=== PATIENT | female | born 1940 | race Caucasian/White ===

== ENCOUNTER 2017-09-09 06:29 | Day surgery (SDC) | payer MEDICARE ==
[2017-09-09] MEDS ORDERED: Sodium Chloride 0.9% 10 ML Syringe FLUSH PRN (06:30)
[2017-09-09] MEDS ORDERED: Acetaminophen 500 MG Tab PO ONE (07:00)
[2017-09-09] MEDS ORDERED: Gabapentin 300 MG Cap PO ONE (07:00)
[2017-09-09] MEDS ORDERED: Scopolamine 1.5 MG Transdermal Patch TRDERM ONE (07:00)
[2017-09-09] MEDS: Lactated Ringers 1,000 ML IV SCH ×2 (07:40→10:27)
[2017-09-09] MEDS ORDERED: Clindamycin in 0.9 % Sod Chlor 900 MG/50 ML BAG IV ONE (07:45)
--- NOTE | 2017-09-09 07:50 | PCM.DCSUM1 ---
Discharge Summary - Hospital Course Brief History: Patient was seen in clinic with left knee primary osteoarthritis. Had failed non operative treatment. - Discharge Data Discharge Date: 09/10/17 Discharge Disposition: Home, Self-Care 01 Condition: Good - Patient Summary/Data Operative Procedure(s) Performed: Left total knee arthroplasty Complications: none - Patient Instructions Diet: Usual Diet as Tolerated Activity: Apply Ice, Full Weight Bearing, No Strenuous Activities Driving: Do Not Drive Showering/Bathing: May Shower Wound/Incision Care: Keep Operative Site/Wound Site Clean and Dry, Change Dressing Daily Notify Provider of: Fever, Increased Pain, Swelling and Redness, Drainage, Nausea and/or Vomiting - Discharge Plan Home Medications: Home Meds ALPRAZolam [Xanax] 0.25 mg PO TID PRN 09/08/17 [History] Baclofen 10 mg PO TID 09/08/17 [History] DULoxetine [Cymbalta] 60 mg PO DAILY 09/08/17 [History] Furosemide [Lasix] 20 mg PO DAILY 09/08/17 [History] Omeprazole Magnesium [Prilosec Otc] 40 mg PO DAILY 09/08/17 [History] PNV95/Ferrous Fumarate/FA [ Tablet] 1 tab PO DAILY 09/09/17 [History] Temazepam [Restoril] 60 mg PO BEDTIME 09/09/17 [History] Vitamin B Complex [Super B-50 Complex] 1 cap PO DAILY 09/09/17 [History] Patient Handouts: Incentive Spirometer, Total Knee Replacement, Care After, [id number], Fall Prevention in Hospitals, Adult - General Info Functional Status: Reports: Pain Controlled, Tolerating Diet, Ambulating, Urinating - Review of Systems General: Reports: No Symptoms HEENT: Reports: No Symptoms Pulmonary: Reports: No Symptoms Cardiovascular: Reports: No Symptoms Gastrointestinal: Reports: No Symptoms Genitourinary: Reports: No Symptoms Musculoskeletal: Reports: Joint Pain Skin: Reports: No Symptoms Neurological: Reports: No Symptoms Psychiatric: Reports: No Symptoms - Patient Data Vitals - Most Recent: Last Vital Signs Temp 98.0 F 09/09/17 07:00 Pulse 81 09/09/17 07:00 Resp 18 09/09/17 07:00 BP 138/75 09/09/17 07:00 Pulse Ox 99 09/09/17 07:00 Weight - Most Recent: 147 lb Med Orders - Current: Current Medications Lactated Ringer's (Ringers, Lactated) 1,000 mls @ 125 mls/hr IV ASDIRECTED [facility] Last Admin: 09/09/17 07:40 Dose: 125 mls/hr Clindamycin in 0.9 % Sod Chlor (Cleocin In Ns) 900 mg in 50 mls @ 100 mls/hr IV ONETIME ONE Stop: 09/09/17 08:14 Sodium Chloride (Saline Flush) 10 ml FLUSH ASDIRECTED PRN PRN Reason: Keep Vein Open Discontinued Medications Acetaminophen (Tylenol Extra Strength) 1,000 mg PO ONETIME ONE Stop: 09/09/17 07:01 Gabapentin (Neurontin) 300 mg PO ONETIME ONE Stop: 09/09/17 07:01 Last Admin: 09/09/17 07:42 Dose: 300 mg Scopolamine (Transderm-Scop) 1.5 mg TRDERM PREPRO ONE Stop: 09/09/17 07:01 - Exam General: Reports: Alert, Oriented HEENT: Reports: Pupils Equal, Mucous Membr. Moist/[place] Neck: Reports: Supple, Trachea Midline Lungs: Reports: Clear to Auscultation, Normal Respiratory Effort Extremities: Joint Swelling Skin: Reports: Warm, Dry, Intact Wound/Incisions: Reports: Healing Well, Dressing Dry and Intact, No Drainage Neurological: Reports: No New Focal Deficit
[2017-09-09] MEDS ORDERED: TRANEXAMIC ACID IV ONE (08:00)
[2017-09-09] MEDS ORDERED: Midazolam 1 MG/ML 2 ML SDV IV ONE (08:00)
[2017-09-09] MEDS ORDERED: Propofol 200 MG/20 ML SDV IV ONE (08:00)
[2017-09-09] MEDS ORDERED: SODIUM CHLORIDE 0.9% IV ONE (08:00)
[2017-09-09] MEDS ORDERED: Lactated Ringers 1,000 ML IV ONE (08:00)
[2017-09-09] MEDS ORDERED: Ondansetron 4 MG/2 ML SDV IVPUSH ONE (08:00)
[2017-09-09] MEDS ORDERED: Ketamine 500 mg/10 ML MDV IV ONE (08:00)
[2017-09-09] MEDS ORDERED: Ropivacaine 49.25 ML, Ketorolac 30 MG, EPINEPHrine 0.5 MG, cloNIDine 80 MCG, Sodium Chl... INJECT SCH ×5 (08:00)
[2017-09-09] MEDS ORDERED: fentaNYL 100 MCG/2 ML SDV IV ONE (08:00)
[2017-09-09] MEDS ORDERED: TOBRAMYCIN SULFATE ONE (09:20)
[2017-09-09] MEDS ORDERED: Vancomycin 1,000 MG SDV ONE (09:35)
[2017-09-09] MEDS ORDERED: Ondansetron 4 MG/2 ML SDV IVPUSH PRN ×2 (09:50→11:07)
[2017-09-09] MEDS ORDERED: Morphine 2 MG/ML Syringe IVPUSH PRN (09:50)
[2017-09-09] MEDS ORDERED: Naloxone 0.4 MG/ML SDV IVPUSH PRN ×2 (09:50→11:07)
[2017-09-09] MEDS ORDERED: Sennosides 8.6 MG Tab PO PRN (09:50)
[2017-09-09] MEDS ORDERED: diphenhydrAMINE 50 MG/ML SDV IVPUSH PRN (09:50)
[2017-09-09] MEDS ORDERED: Magnesium Hydroxide 400 MG/5 ML Susp 30 ML Cup PO PRN (09:50)
[2017-09-09] MEDS ORDERED: Zolpidem 5 MG Tab PO PRN (09:50)
[2017-09-09] MEDS ORDERED: Ketorolac 30 MG/ML SDV IVPUSH PRN (09:50)
[2017-09-09] MEDS ORDERED: traMADol 50 MG Tab PO PRN (09:50)
[2017-09-09] MEDS ORDERED: Docusate Sodium 100 MG Cap PO PRN (09:50)
[2017-09-09] MEDS ORDERED: Bisacodyl 5 MG Tab PO PRN (09:50)
[2017-09-09] MEDS ORDERED: Baclofen 10 MG Tab PO PRN (09:55)
[2017-09-09] MEDS ORDERED: Cyclobenzaprine 10 MG Tab PO PRN (09:55)
[2017-09-09] MEDS ORDERED: ALPRAZolam 0.25 MG Tab PO PRN (09:55)
[2017-09-09] MEDS ORDERED: Nalbuphine 10 MG/1 ML Vial IVPUSH PRN (11:07)
[2017-09-09] MEDS ORDERED: diphenhydrAMINE 50 MG/ML SDV IV PRN (11:07)
--- NOTE | 2017-09-09 11:39 | CR ---
INDICATION: Postop. LEFT KNEE: Frontal and lateral postop views of the left knee were obtained 03/2018 and compared with 08/19/2017 preop study, now revealing a TKA in good position and alignment with postop changes, including air in the joint and skin luis carlos. Position and alignment appear to be satisfactory without evidence of a complicating process. IMPRESSION: Satisfactory appearance postop total knee arthroplasty on the left. VANNESSA
[2017-09-09] MEDS: Baclofen 10 MG Tab PO SCH ×2 (14:52→21:10)
[2017-09-09] MEDS: Acetaminophen/HYDROcodone 325-10 MG Tab PO PRN ×2 (15:53→20:07)
[2017-09-10] MEDS: Acetaminophen/HYDROcodone 325-10 MG Tab PO PRN ×3 (00:16→08:05)
--- NOTE | 2017-09-10 08:20 | PCM.PN ---
- General Info Date of Service: 09/10/17 Admission Dx/Problem (Free Text): Patient states she's having lots of pain in the left knee. Feels a little bit numb today. He denies chest pain, shortness of breath, wheezing or chills. - Patient Data Vitals - Most Recent: Last Vital Signs Temp 97.8 F 09/10/17 00:00 Pulse 80 09/10/17 07:45 Resp 20 09/10/17 04:30 BP 125/64 09/10/17 04:30 Pulse Ox 95 09/10/17 07:45 Weight - Most Recent: 147 lb I&O - Last 24 Hours: Intake & Output 09/09/17 09/10/17 09/10/17 22:59 06:59 14:59 Output Total 335 450 Balance -335 -450 Lab Results Last 24 Hours: Laboratory Results - last 24 hr 09/10/17 09/10/17 Range/Units 06:10 06:10 WBC 7.9 (4.5-12.0) X10-3/uL RBC 3.30 (3.23-5.20) x10(6)uL Hgb 10.4 L (11.5-15.5) g/dL Hct 31.4 (30.0-51.3) % MCV 95.2 (80-96) fL MCH 31.6 (27.7-33.6) pg MCHC 33.2 (32.2-35.4) g/dL RDW 13.4 (11.5-15.5) % Plt Count 188 (125-369) X10(3)uL MPV 7.4 (7.4-10.4) fL Neut % (Auto) 76.8 (46-82) % Lymph % (Auto) 10.5 L (13-37) % [place] % (Auto) 11.3 (4-12) % Eos % (Auto) 1 (1.0-5.0) % Baso % (Auto) 0 (0-2) % Neut # (Auto) 6.1 (1.6-8.3) # Lymph # (Auto) 0.8 (0.6-5.0) # [place] # (Auto) 0.9 (0.0-1.3) # Eos # (Auto) 0.1 (0.0-0.8) # Baso # (Auto) 0.0 (0.0-0.2) # Sodium 136 (135-145) mmol/L Potassium 4.1 (3.5-5.3) mmol/L Chloride 103 (100-110) mmol/L Carbon Dioxide 29 (21-32) mmol/L BUN 11 (7-18) mg/dL Creatinine 0.7 (0.55-1.02) mg/dL Est Cr Clr Drug Dosing 50.79 mL/min Estimated GFR (MDRD) > 60 (>60) BUN/Creatinine Ratio 15.7 (9-20) Glucose 96 (80-116) mg/dL Calcium 8.4 L (8.6-10.2) mg/dL Total Bilirubin 0.6 (0.1-1.3) mg/dL AST 22 (5-25) IU/L ALT 8 L (12-36) U/L Alkaline Phosphatase 112 (56-112) IU/L Total Protein 6.4 (6.0-8.0) g/dL Albumin 2.8 L (3.2-4.6) g/dL Globulin 3.6 g/dL Albumin/Globulin Ratio 0.8 Med Orders - Current: Current Medications Hydrocodone Bitart/Acetaminophen ([place] 325-10 Mg) 1 tab PO Q4H PRN PRN Reason: severe Pain Last Admin: 09/10/17 08:05 Dose: 1 tab Alprazolam (Xanax) 0.25 mg PO TID PRN PRN Reason: Anxiety Aspirin (Ecotrin) 325 mg PO DAILY [facility] Baclofen (Lioresal) 10 mg PO TID [facility] Last Admin: 09/09/17 21:10 Dose: Not Given Bisacodyl (Dulcolax) 10 mg PO DAILY PRN PRN Reason: Constipation Diazepam (Valium) 5 mg IVPUSH Q6H PRN PRN Reason: Spasms Diphenhydramine HCl (Benadryl) 25 mg IVPUSH Q4H PRN PRN Reason: Itching Docusate Sodium (Colace) 100 mg PO BID PRN PRN Reason: Constipation Duloxetine HCl (Cymbalta) 60 mg PO DAILY [facility] Furosemide (Lasix) 20 mg PO DAILY [facility] Lactated Ringer's (Ringers, Lactated) 1,000 mls @ 125 mls/hr IV ASDIRECTED [facility] Last Admin: 09/09/17 10:27 Dose: 125 mls/hr Ketorolac Tromethamine (Toradol) 30 mg IVPUSH Q8H PRN PRN Reason: MODERATE Pain Magnesium Hydroxide (Milk Of Magnesia) 30 ml PO BID PRN PRN Reason: Constipation Melatonin (Melatonin) 5 mg PO BEDTIME PRN PRN Reason: Sleep Morphine Sulfate (Morphine) 2 mg IVPUSH Q2H PRN PRN Reason: SEVERE Pain Nalbuphine HCl (Nubain) 10 mg IVPUSH Q1H PRN PRN Reason: Pruritus Naloxone HCl (Narcan) 0.1 mg IVPUSH ONETIME PRN PRN Reason: Oversedation Non-Formulary Medication (Omeprazole Magnesium [Prilosec Otc]) 40 mg PO DAILY [facility] Ondansetron HCl (Zofran) 8 mg IVPUSH Q4H PRN PRN Reason: Nausea/Vomiting Senna (Senna) 8.6 mg PO BID PRN PRN Reason: Constipation Sodium Chloride (Saline Flush) 10 ml FLUSH ASDIRECTED PRN PRN Reason: Keep Vein Open Last Admin: 09/09/17 12:10 Dose: 10 ml Tramadol HCl (Ultram) 100 mg PO Q6H PRN PRN Reason: MODERATE Pain Zolpidem Tartrate (Ambien) 5 mg PO BEDTIME PRN PRN Reason: Sleep Last Admin: 09/09/17 22:08 Dose: 5 mg Discontinued Medications Acetaminophen (Tylenol Extra Strength) 1,000 mg PO ONETIME ONE Stop: 09/09/17 07:01 Last Admin: 09/09/17 07:42 Dose: 1,000 mg Ropivacaine 49.25 ml/Ketorolac Tromethamine 30 mg/Epinephrine HCl 0.5 mg/ Clonidine HCl 80 mcg/ Sodium Chloride 48.45 ml 0 ml INJECT ASDIRECTED [facility] Stop: 09/09/17 07:48 Last Admin: 09/09/17 09:24 Dose: 100 syringe Cyclobenzaprine HCl (Flexeril) 10 mg PO TID PRN PRN Reason: Muscle Spasm Gabapentin (Neurontin) 300 mg PO ONETIME ONE Stop: 09/09/17 07:01 Last Admin: 09/09/17 07:42 Dose: 300 mg Clindamycin in 0.9 % Sod Chlor (Cleocin In Ns) 900 mg in 50 mls @ 100 mls/hr IV ONETIME ONE Stop: 09/09/17 08:14 Last Admin: 09/09/17 08:00 Dose: 100 mls/hr Scopolamine (Transderm-Scop) 1.5 mg TRDERM PREPRO ONE Stop: 09/09/17 07:01 Last Admin: 09/09/17 07:49 Dose: 1.5 mg Tobramycin Sulfate (Tobramycin Sulfate) 2 gm .XX .STK-MED ONE Stop: 09/09/17 09:21 Last Admin: 09/09/17 09:20 Dose: 2 gm Vancomycin HCl (Vancomycin) 1,000 mg .XX .STK-MED ONE Stop: 09/09/17 09:36 Last Admin: 09/09/17 09:35 Dose: 1,000 mg - Exam General: Alert, Oriented, Cooperative Neck: Supple Lungs: Clear to Auscultation, Normal Respiratory Effort Cardiovascular: Regular Rate, Regular Rhythm, No Murmurs Skin: Warm, Dry, Intact Psy/Mental Status: Alert, Normal Affect, Normal Mood - Problem List & Annotations (1) S/P total knee arthroplasty SNOMED Code(s): 6956645295865, 698761511, 7369131212119 Code(s): Z96.659 - PRESENCE OF UNSPECIFIED ARTIFICIAL KNEE JOINT Status: Acute Current Visit: Yes - Problem List Review Problem List Initiated/Reviewed/Updated: Yes - My Orders Last 24 Hours: My Active Orders 09/10/17 08:14 Ready for Discharge [RC] PER UNIT ROUTINE - Plan Plan:: D/C to home. Recheck with Dr Nesbitt September 30. See d/c orders.
[2017-09-10] MEDS ORDERED: Propranolol 10 MG Tab PO SCH (09:00)
[2017-09-10] MEDS ORDERED: Aspirin 325 MG Tab.EC PO SCH (09:00)
[2017-09-10] MEDS ORDERED: DULoxetine 60 MG Cap *PTOM PO SCH (09:00)
[2017-09-10] MEDS ORDERED: Sodium Chloride 0.9% 10 ML Syringe FLUSH SCH (09:00)
[2017-09-10] MEDS ORDERED: Furosemide 20 MG Tab *PTOM PO SCH (09:00)
[2017-09-10] MEDS ORDERED: Non-Formulary Medication 1 Each (Omeprazole Magnesium [Prilosec Otc] 40 MG) PO SCH (09:00)
[2017-09-10] MEDS: Baclofen 10 MG Tab PO SCH (10:09)
--- NOTE | 2017-09-12 10:10 | OR ---
DATE OF OPERATION: 09/09/2017 SURGEON: Armani Nesbitt DO PREOPERATIVE DIAGNOSIS: Left knee primary osteoarthritis. POSTOPERATIVE DIAGNOSIS: Left knee primary osteoarthritis. PROCEDURE: Left knee total knee arthroplasty. ANESTHESIA: Spinal plus conscious sedation. FLUIDS: Lactated Ringer's solution. ESTIMATED BLOOD LOSS: 50 mL. COMPLICATIONS: None. SPECIMENS: None. DISCHARGE DISPOSITION: Stable to PACU. INSTRUMENTATION: DePuy Attune size 5 femur, size 4 tibia, 6 mm polyethylene insert, and 35 mm patella. HISTORY AND INDICATIONS FOR THE PROCEDURE: The patient was seen preoperatively in the clinic. She had failed nonoperative treatment. Risks and benefits of the procedure were explained to the patient. Informed consent was obtained. Preoperative imaging confirmed the above-mentioned diagnosis. DETAILS OF PROCEDURE: The patient was seen preoperatively by myself and the Anesthesia staff in the preoperative holding area, where the operative site was marked. She was brought to the operative suite by the Anesthesia staff, where spinal sedation was administered, plus conscious sedation. A well padded tourniquet was placed on the left thigh. The left lower extremity was then prepped and draped in a sterile manner. A time-out was called identifying the correct patient, the correct procedure, the correct site, and that antibiotics had begun within the appropriate period of time. The left lower extremity had tourniquet raised to 300 mmHg and taken down at 47 minutes, during cementing. Midline incision was made 3 fingerbreadths proximal to the patella down to the level of the tibial tubercle. Bleeding during the case was controlled with Bovie electrocautery. Medial parapatellar arthrotomy was then made. Infrapatellar fat pad was removed, and a full synovectomy was performed. I then flexed the knee and then made my free hand patella cuts. I then extended the knee and measured the 35 mm patella. We drilled 3 holes and then inserted the polyethylene trial. We then flexed the knee and then removed some osteophytes around the femur. I then reamed the distal femur and inserted the intramedullary guide at 5-degree valgus, 9 mm distal cut. I then pinned this in place, removed the intramedullary portion of the nando guide, and then made my distal femoral cut. I then removed those pins and then placed a posterior condylar guide, this measured size 5. I put the [address] and then removed the guide and then placed my chamfer block and then made the anterior and posterior chamfer cuts. After this had been performed, I then used the guide to make my final notch cut. I then interiorized the tibia using the blunt Hohmann and then protected the collateral ligaments with sharp Hohmanns. I used the extramedullary tibial guide with a 3 mm proximal cut, and using the stylets, I then pinned this in place. I then made my proximal tibia cut. I then used the Bovie electrocautery to remove the proximal tibia from its attachments, leaving the posterior cruciate ligament intact. I then removed some extra osteophytes and used the saw to clean up the tibial surface. I then removed the guide and pins and then used Weitlaner for retraction and removed the remainder of the medial and lateral meniscus, as well as posterior osteophytes. There was a large joint mouse on the lateral posterior capsule, which was removed. We then removed the Weitlaner and then interiorized the tibia again, then used the 5 tibial baseplate, tamped that in place with our tower, and then reamed and tamped. We then inserted my femoral trial, and then inserted a size 5. The 5- mm polyethylene trial was providing good stability. We then removed all of our components, copiously irrigated with saline, and then dried it with a lap sponge and then mixed our cement and cemented our components in place with the knee in extension with slight internal rotation and let down the tourniquet 47 minutes after the cement had dried. We then removed any extra cement. I copiously irrigated with saline. I then trailed with a size 5, 6-mm polyethylene insert and then decided that provided excellent stability. I then inserted my final polyethylene insert on the tibial baseplate and then ranged it. This provided good stability throughout range of motion. We then irrigated again and then closed with two #5 Ethibond and #1 Stratafix for the parapatellar arthrotomy. I then applied some vancomycin powder, after irrigating again with some Betadine solution and then closed with #2 Stratafix and skin luis carlos. Please note that, after I made the initial incision, I realized that I did not have a light handle present that was sterile, that I had touched. We then switched gloves, removed the scalpel blade which I had used, and then soaked the joint in iodine solution for approximately 3 minutes and then irrigated copiously with iodine and then continue with the procedure. This was done at the beginning of the procedure. The patient was then taken to the PACU in stable condition. /[id number] BS/MODL
== END 2017-09-10 10:15 | disposition home or self-care (01) ==
LOC: FB.SDS 06:29 → FB.MS 10:54 → FB.SDS 09-10 10:15
PROVIDERS: ATTEND Orthopaedic Surgery
DX: M17.12 Unilateral primary osteoarthritis, left knee (principal); F41.9 Anxiety disorder, unspecified; F32.9 Major depressive disorder, single episode, unspecified; J45.909 Unspecified asthma, uncomplicated; K21.9 Gastro-esophageal reflux disease without esophagitis; Z79.899 Other long term (current) drug therapy; Z88.0 Allergy status to penicillin; Z88.5 Allergy status to narcotic agent; Z90.49 Acquired absence of other specified parts of digestive tract
CPT/HCPCS: 01402; 27447; 36415; 73560; 80053; 81001; 85025; 86850; 86900; 86901; 94150; 97165; 97530; 97535; A9270; J0171; J0735; J1885; J2795; J3370; J3490; J7050; J7120; J2250; J2405; J2704; J3010; J3260; J7030

== ENCOUNTER 2017-09-17 11:32 | Emergency (ER) | payer MEDICARE ==
--- NOTE | 2017-09-19 11:22 | ER ---
DATE SEEN: 09/17/2017 CONTINUATION: SOCIAL HISTORY: Nonsmoker. Does not drink alcohol. Worked in a [employer]. . . 2, para 2-0-0-2. PAST MEDICAL HISTORY: No history of cancer, heart disease, hypertension, diabetes, asthma, or depression. History of right ulnar fracture, right fifth finger and fifth metacarpal fracture with pinning. PAST SURGICAL HISTORY: Appendectomy, T and A, cataract surgery bilateral, cholecystectomy, right and left TKA. ALLERGIES: To penicillin. PHYSICAL EXAMINATION: VITAL SIGNS: Blood pressure 156/61, heart rate 98, respirations 20, oxygen saturation 98%, temperature is 36.7 degrees centigrade. Repeat blood pressure 140/84. HEENT: The patient has contusion in the right lateral inframandible, approximately 2 to 3 cm ecchymosis. Teeth without abnormality, occlusion appropriate, dentures placed. TMJ is normal. PERRLA intact. Pharynx without abnormality. TMs negative. Hearing slightly decreased. NECK: No bruits in neck. No cervical adenopathy. LUNGS: Clear without rales, rhonchi, or wheezes. HEART: S1, S2. No irregular rate and rhythm. CHEST: Chest wall, right 8, 9, 10, 11 rib tenderness greater than left chest. Has mild 6, 7, and 8 sternochondral discomfort, bilateral, greater on the right than left. No crepitus. No step-off noted. ABDOMEN: Without tenderness. No guarding. No abdominal discomfort. EXTREMITIES: Without abnormality on the right. Status post previous right TKA with healed scar. Left knee dressing in place. Left TKA 7 days postop. Mild swelling in the left lower extremity but minimal. Deep tendon reflexes hypoactive but present, upper and lower extremities. Cranial nerves 2 through 12 intact. She is able to stand. Her gait is somewhat limited because of discomfort with semi-flex of knee. On range of motion, knee does not go into complete extension. She has mild tenderness to elbows without fracture, crepitus, deformity, swelling, or ecchymosis, right greater than left elbow. She has mild hand discomfort without focal swelling, ecchymosis, or deformity, mostly over the second and third metacarpals and also the palmar surface, thenar eminence. DIAGNOSTIC DATA: X-ray does not reveal fracture, shows total right knee arthroplasty. ASSESSMENT: 1. Fall. No fractures of ribs on the patient's chest x-ray. 2. Left knee contusion secondary to fall. No fracture, subluxation, or change of the prosthesis, and the prosthesis with no suggestion of loosening of the fragments. 3. Right inframandibular contusion without fracture. OTHER DIAGNOSES: 1. Status post cholecystectomy. 2. Appendectomy. 3. Hysterectomy. 4. Oophorectomy. 5. Tonsillectomy. 6. Cataract excision. PLAN: The patient use Tylenol 1000 mg and ibuprofen 400 to 600 mg q.6 hours p.r.n. pain. Follow up with doctor as needed. The patient should increase activity and she needs to exercise her leg more because she has mild flexion contracture. The patient was seen on arrival. /[id number] CARLOS EDUARDO/DUSTIN
--- NOTE | 2017-09-19 11:47 | CR ---
INDICATION: Fall. LUMBOSACRAL SPINE: Three views of the lumbosacral spine were obtained 2017. No comparison study is available. Vertebral body and disk heights were fairly well maintained without a definite fracture or dislocation identified. Mild degrees in density suggest the possibility of osteoporosis - correlate clinically. Moderate bridging hyperostotic appearing changes are noted in the lumbosacral spine, most prominent at the L2-3, L3-4, and L4-5 levels. A mild dextroconcave rotoscoliosis is also noted. Sacroiliac joints appear to be grossly intact. IMPRESSION: 1. No definite acute fracture or dislocation - if occult fracture site is suspected clinically, nuclear bone imaging and/or CT or MRI may be helpful. 2. Mild dextroconvex rotoscoliosis. 3. Diminished bone density suggesting the possibility of osteoporosis - correlate clinically. 4. Hypertrophic degenerative changes. MTDD
--- NOTE | 2017-09-19 11:51 | CR ---
INDICATION: Fall, thoracic back pain. THORACIC SPINE: Three views of the thoracic spine were obtained and revealed decreased bone density compatible with osteoporosis. Accentuated dorsal kyphosis is noted in the upper thoracic spine. Hypertrophic degenerative changes anteriorly are noted off vertebral bodies in the upper through lower thoracic levels and laterally in the mid to lower levels additionally. Decreased disk height is noted anteriorly at multiple upper middle thoracic levels with overall vertebral body and disk heights fairly well maintained. A definite fracture or dislocation was not identified. Demineralization is suggested, compatible with osteoporosis - correlate clinically. A mild dextroconvex scoliosis of the thoracic spine is noted but could be positional - correlate clinically. IMPRESSION: 1. No definite acute fracture or dislocation. If occult fracture site is suspected clinically, nuclear bone imaging, CT, or MRI may be helpful for further evaluation. 2. Osteoporosis. 3. DJD with kyphosis and scoliosis. MTDD
--- NOTE | 2017-09-19 11:57 | CR ---
INDICATION: Left greater than right chest/rib pain, #8 through #11, also at those levels of the sternum, chondral pain. CHEST: A single PA view of the chest was obtained. The heart appears slightly enlarged. The aorta is tortuous and calcified in the arch area. There is suggestion of a minimal dextroconvex scoliosis of the thoracic spine. No definite acute fracture site is seen. Somewhat demineralized bony structures raise question of osteoporosis - correlate clinically. A contusion, pneumothorax, infiltrate, or effusion was not identified. Lungs appear to be somewhat hyperaerated with interdigitation of the right hemidiaphragm leaf, raising question of COPD. IMPRESSION: 1. No definite acute process. 2. Probable COPD. 3. ASHD. 4. Minimal scoliosis thoracic spine. 5. Probable osteoporosis - correlate clinically. BILATERAL RIBS: Seven views of the ribs were obtained in multiple projections. Bone density is somewhat diminished, suggesting osteoporosis. A displaced fracture site or other definite bony abnormality was not identified. IMPRESSION: No displaced rib fracture is identified. If occult fracture site is suspected clinically, nuclear bone imaging or CT may be helpful. MTDD
--- NOTE | 2017-09-19 12:02 | CR ---
INDICATION: Fall onto left TKA, 6th postop day. LEFT KNEE: Three views of the left knee reveal evidence of very recent total knee arthroplasty with skin luis carlos noted in place anteriorly. Findings were compared with previous study of 09/09/2017. Postop changes appear to have resolved. A change in positioning between the two lateral images make it difficult to determine whether the lucency behind the anterior aspect of the femoral component of the arthroplasty is stable or new. Continued followup is therefore recommended, as felt to be clinically necessary. The total knee arthroplasty appears to be in good position and alignment overall; however, at the anterior aspect of the femoral component of the arthroplasty, there is 1 to 1.5 mm lucency between the methylmethacrylate and the femoral cortex, raising question of early or mild degree of loosening. This should be correlated clinically. Otherwise, no finding to suggest a fracture, dislocation, or other complicating process was identified. MARKD
--- NOTE | 2017-09-30 11:46 | ER ---
DATE SEEN: 09/17/2017 HISTORY OF PRESENT ILLNESS: This 77-year-old woman is status post several days total left knee arthroplasty. She was in the bedroom walking, and she fell, lost her balance, and traumatized her face. She feels pain in her knees and in her face. She has abrasion on the left side of her forehead. REVIEW OF SYSTEMS: HEENT: History of decreased hearing. Does not wear a hearing aid. Denies cataracts. Denies glaucoma surgery. CARDIORESPIRATORY: Denies chest pain, shortness of breath, irregular heartbeat, syncope, near syncope, or palpitations. No pedal edema, except she has swelling of the left lower extremity where she is status post left TKA more recently. GI: Denies constipation, blood in the stool, black-tarry stool, or diarrhea. Denies back pain. Denies previous renal stones. : Denies frequency, urgency, or dysuria. MUSCULOSKELETAL: Complaints as discomfort above her knees, mild discomfort also of left knee discomfort, status post TKA, but that has not changed from what it was before. She denies gastroc or pain in the lower extremities. She denies swelling of lower extremities, except for left lower extremity. NEUROLOGIC: No history of seizures, TIA, head injury, or headache. /[id number] CARLOS EDUARDO/DUSTIN
== END 2017-09-17 13:50 | disposition home or self-care (01) ==
LOC: FB.ED 11:32
DX: S80.02XA Contusion of left knee, initial encounter (principal); S00.83XA Contusion of other part of head, initial encounter; W19.XXXA Unspecified fall, initial encounter; Z96.652 Presence of left artificial knee joint; Z88.0 Allergy status to penicillin; Z90.49 Acquired absence of other specified parts of digestive tract; Z90.710 Acquired absence of both cervix and uterus
CPT/HCPCS: 71111; 72070; 72100; 73562-LT; 99283

== ENCOUNTER 2021-02-17 16:22 | Emergency (ER) | payer MEDICARE ==
[2021-02-17] MEDS ORDERED: Ketorolac 30 MG/ML SDV IM ONE (16:59)
--- NOTE | 2021-02-17 17:03 | EDM.PDOC ---
ED HPI GENERAL MEDICAL PROBLEM - General Chief Complaint: General Stated Complaint: LEFT RIB PAIN Time Seen by Provider: 02/17/21 16:30 Source of Information: Reports: Patient, Family History Limitations: Reports: No Limitations - History of Present Illness INITIAL COMMENTS - FREE TEXT/NARRATIVE: c/o pain at L ribs x 3d pt here with son, has had pain at L hemithorax of AAL over ~ ribs 8-9, inc'd pain with deep breath, inc'd pain to touch, heat does not help no cough, no fever, no f/c/d has no had prior pul/CV disease, denies MIs/stents/pneumonia, never smoked no trauma, was at the house most of the day 3d ago, not doing lifting, no fall has had COVID vax x 2, not had COVID, is planning on getting flu vax soon last labs in [place] 3y ago Treatments 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: Reports: Acetaminophen Other Treatments 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: 1400 2 tylenol Left Rib Pain Score (Numeric/FACES): 3 - Related Data Allergies Allergy/AdvReac Type Severity Reaction Status Date / Time acetaminophen [From Percocet] Allergy Vomiting Verified 09/17/17 11:42 codeine Allergy Vomiting Verified 09/09/17 07:17 oxycodone Allergy Vomiting Verified 09/09/17 07:18 Penicillins AdvReac Mild Rash Verified 09/08/17 07:28 Home Meds: Home Meds Baclofen 10 mg PO TID PRN 09/08/17 [History] DULoxetine [Cymbalta] 60 mg PO DAILY 09/08/17 [History] Temazepam [Restoril] 60 mg PO BEDTIME 09/09/17 [History] Furosemide [Lasix] 20 mg PO DAILY 09/17/17 [History] Hydrocodone/Acetaminophen [Hydrocodon-Acetaminophn 10-325] 1 tab PO Q4H PRN 09/17/17 [History] Multivitamin [Multi-Vitamin Daily] 1 tab PO DAILY 09/17/17 [History] Omeprazole 20 mg PO DAILY 09/17/17 [History] Vitamin B Complex 1 tab PO DAILY 09/17/17 [History] Past Medical History HEENT History: Reports: Cataract Respiratory History: Reports: Asthma Gastrointestinal History: Reports: GERD 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: Musculoskeletal History: Reports: Arthritis Psychiatric History: Reports: Anxiety Hematologic History: Reports: Anemia - Infectious Disease History Infectious Disease History: Reports: Measles - Past Surgical History GI Surgical History: Reports: Appendectomy, Cholecystectomy Female Surgical History: Reports: Hysterectomy Musculoskeletal Surgical History: Reports: Arthroscopic Procedure, Knee Replacement Other Musculoskeletal Surgeries/Procedures:: LEFT TOTAL KNEE, RT KNEE ARTHROSCOPY, HEEL SPUR REMOVED, FX HAND REPAIR Social & Family History - Family History Family Medical History: No Pertinent Family History - Tobacco Use Tobacco Use Status *Q: Never Tobacco User Second Hand Smoke Exposure: Yes - Caffeine Use Caffeine Use: Reports: Coffee - Recreational Drug Use Recreational Drug Use: No ED ROS GENERAL - Review of Systems Review Of Systems: See Below Constitutional: Reports: No Symptoms HEENT: Reports: No Symptoms Respiratory: Reports: No Symptoms Cardiovascular: Reports: Chest Pain Endocrine: Reports: No Symptoms GI/Abdominal: Reports: No Symptoms : Reports: No Symptoms Musculoskeletal: Reports: No Symptoms Skin: Reports: No Symptoms Neurological: Reports: No Symptoms Psychiatric: Reports: No Symptoms Hematologic/Lymphatic: Reports: No Symptoms Immunologic: Reports: No Symptoms ED EXAM, GENERAL - Physical Exam Exam: See Below Exam Limited By: No Limitations General Appearance: Alert, WD/WN, Other (alert, non ill, appears somewhat uncomfortable, nontoxic, moving air well, no cough observed) Ears: Hearing Grossly Normal Nose: Normal Inspection Throat/Mouth: Normal Inspection, Normal Lips, Normal Teeth, Normal Voice, No Airway Compromise Head: Atraumatic, Normocephalic Neck: Normal Inspection, Supple, Non-Tender, Full Range of Motion. No: Lymphadenopathy (R), Lymphadenopathy (L) Respiratory/Chest: Lungs Clear, Normal Breath Sounds, No Accessory Muscle Use, Other (1+ tender at AAL over rib 6-11, upper ribs NT b/l, pos ribs NT b/l, palpation at L ribs 8-10 in MCL produces pain referrable to left AAL). No: Decreased Breath Sounds, Crackles, Rales, Rhonchi, Wheezing, Stridor, Pleural Rub, Accessory Muscle Use, Retractions, Splinting, Prolonged Expiration Cardiovascular: Regular Rate, Rhythm, No Edema, Other (2/6 RICHARD at LSB) GI/Abdominal: Normal Bowel Sounds, Soft, Non-Tender, No Distention Back Exam: Normal Inspection, Full Range of Motion. No: CVA Tenderness (R), CVA Tenderness (L) Extremities: Normal Inspection, Normal Range of Motion, Non-Tender, No Pedal Edema Neurological: Alert, Oriented, CN II-XII Intact, Normal Cognition, No Motor/Sensory Deficits Psychiatric: Normal Affect, Normal Mood Skin Exam: Warm, Dry, Intact, Normal Color, No Rash Lymphatic: No Adenopathy Course - Vital Signs Last Recorded V/S: Last Vital Signs Temp 36.5 C 02/17/21 18:54 Pulse 68 02/17/21 18:54 Resp 18 02/17/21 18:54 BP 180/87 H 02/17/21 18:54 Pulse Ox 96 02/17/21 18:54 - Orders/Labs/Meds Orders: Active Orders 24 hr Category Date Time Status Ang Chest [CT] Stat Exams 02/17/21 17:46 Taken Sodium Chloride 0.9% [Saline Flush] Med 02/17/21 18:04 Active 10 ml FLUSH ASDIRECTED PRN Saline Lock Insert [OM.PC] Routine Oth 02/17/21 18:04 Ordered Medication Orders Sodium Chloride (Sodium Chloride 0.9% 10 Ml Syringe) 10 ml FLUSH ASDIRECTED PRN PRN Reason: Keep Vein Open Last Admin: 02/17/21 18:06 Dose: 10 ml Documented by: FATUMA Labs: Laboratory Tests 02/17/21 02/17/21 02/17/21 Range/Units 17:05 17:05 17:05 WBC 5.2 (3.0-10.3) x10-3/uL RBC 3.71 (3.60-5.20) x10(6)uL Hgb 11.6 (11.4-15.5) g/dL Hct 35.0 (34.2-48.2) % MCV 94.5 (76.7-100.5) fL MCH 31.3 (23.9-33.9) pg MCHC 33.2 (31.9-34.8) g/dL RDW 14.0 (12.3-16.5) % Plt Count 235 (151-488) x10(3)uL MPV 7.2 (7.1-12.4) fL Neut % (Auto) 55.2 (30.8-76.2) % Lymph % (Auto) 30.4 (18.4-52.1) % Avery % (Auto) 10.8 (4.4-15.7) % Eos % (Auto) 2.9 (0.6-8.1) % Baso % (Auto) 0.7 (0.2-1.5) % Neut # (Auto) 2.8 (1.5-6.3) x10-3/uL Lymph # (Auto) 1.6 (1.0-4.4) x10-3/uL Avery # (Auto) 0.6 (0.3-1.0) x10-3/uL Eos # (Auto) 0.2 (0.0-0.8) x10-3/uL Baso # (Auto) 0.0 (0.0-0.1) x10-3/uL D-Dimer, Quantitative 0.98 H (0.0-0.59) mg/LFEU Sodium 140 (135-145) mmol/L Potassium 4.6 (3.5-5.3) mmol/L Chloride 106 (100-110) mmol/L Carbon Dioxide 25 (21-32) mmol/L BUN 15 (7-18) mg/dL Creatinine 0.8 (0.55-1.02) mg/dL Est Cr Clr Drug Dosing 42.32 mL/min Estimated GFR (MDRD) > 60 (>60) BUN/Creatinine Ratio 18.8 (9-20) Glucose 102 (80-116) mg/dL Calcium 8.4 L (8.6-10.2) mg/dL Total Bilirubin 0.4 (0.1-1.3) mg/dL AST 14 D (5-25) IU/L ALT 15 D (12-36) U/L Alkaline Phosphatase 180 H (56-112) IU/L C-Reactive Protein (0.5-0.9) mg/dL Total Protein 7.1 (6.0-8.0) g/dL Albumin 3.2 (3.2-4.6) g/dL Globulin 3.9 g/dL Albumin/Globulin Ratio 0.8 02/17/21 Range/Units 17:05 WBC (3.0-10.3) x10-3/uL RBC (3.60-5.20) x10(6)uL Hgb (11.4-15.5) g/dL Hct (34.2-48.2) % MCV (76.7-100.5) fL MCH (23.9-33.9) pg MCHC (31.9-34.8) g/dL RDW (12.3-16.5) % Plt Count (151-488) x10(3)uL MPV (7.1-12.4) fL Neut % (Auto) (30.8-76.2) % Lymph % (Auto) (18.4-52.1) % Avery % (Auto) (4.4-15.7) % Eos % (Auto) (0.6-8.1) % Baso % (Auto) (0.2-1.5) % Neut # (Auto) (1.5-6.3) x10-3/uL Lymph # (Auto) (1.0-4.4) x10-3/uL Avery # (Auto) (0.3-1.0) x10-3/uL Eos # (Auto) (0.0-0.8) x10-3/uL Baso # (Auto) (0.0-0.1) x10-3/uL D-Dimer, Quantitative (0.0-0.59) mg/LFEU Sodium (135-145) mmol/L Potassium (3.5-5.3) mmol/L Chloride (100-110) mmol/L Carbon Dioxide (21-32) mmol/L BUN (7-18) mg/dL Creatinine (0.55-1.02) mg/dL Est Cr Clr Drug Dosing mL/min Estimated GFR (MDRD) (>60) BUN/Creatinine Ratio (9-20) Glucose (80-116) mg/dL Calcium (8.6-10.2) mg/dL Total Bilirubin (0.1-1.3) mg/dL AST (5-25) IU/L ALT (12-36) U/L Alkaline Phosphatase (56-112) IU/L C-Reactive Protein < 0.2 L (0.5-0.9) mg/dL Total Protein (6.0-8.0) g/dL Albumin (3.2-4.6) g/dL Globulin g/dL Albumin/Globulin Ratio Meds: Medications Generic Name Dose Route Start Last Admin Trade Name Freq PRN Reason Stop Dose Admin Sodium Chloride 10 ml 02/17/21 18:04 02/17/21 18:06 Sodium Chloride 0.9% 10 Ml Syringe FLUSH 10 ml ASDIRECTED PRN Administration Keep Vein Open Discontinued Medications Generic Name Dose Route Start Last Admin Trade Name Zachary PRN Reason Stop Dose Admin Iopamidol 85 ml 02/17/21 18:03 Iopamidol 755 Mg/Ml 100 Ml Bottle IV 02/17/21 18:04 . DIRECTED ONE Ketorolac Tromethamine 30 mg 02/17/21 16:59 02/17/21 17:03 Ketorolac 30 Mg/Ml Sdv IM 02/17/21 17:00 30 mg ONETIME ONE Administration - Re-Assessments/Exams Free Text/Narrative Re-Assessment/Exam: 02/17/21 19:15 chest CTA results pending, waiting call from radiologist Dr Dean pt signed out at 19:[address] Lemon, final disposition per Dr Lemon Departure - Departure Time of Disposition: 19:16 Disposition: Still A Patient 30 Condition: Good Clinical Impression: Pleuritic chest pain, Elevated d-dimer - Discharge Information *PRESCRIPTION DRUG MONITORING PROGRAM REVIEWED*: Not Applicable *COPY OF PRESCRIPTION DRUG MONITORING REPORT IN PATIENT JEANINE: Not Applicable Forms: ED Department Discharge Sepsis Event Note (ED) - Evaluation Sepsis Screening Result: No Definite Risk - Focused Exam Vital Signs: Vital Signs Temp Pulse Resp BP Pulse Ox 02/17/21 18:54 36.5 C 68 18 180/87 H 96 02/17/21 17:00 36.6 C 69 18 170/84 H 96 02/17/21 16:25 36.0 C L 69 18 171/91 H 96 - My Orders Last 24 Hours: My Active Orders 02/17/21 17:46 Ang Chest [CT] Stat 02/17/21 18:04 Sodium Chloride 0.9% [Saline Flush] 10 ml FLUSH ASDIRECTED PRN Saline Lock Insert [OM.PC] Routine - Assessment/Plan Last 24 Hours: My Active Orders 02/17/21 17:46 Ang Chest [CT] Stat 02/17/21 18:04 Sodium Chloride 0.9% [Saline Flush] 10 ml FLUSH ASDIRECTED PRN Saline Lock Insert [OM.PC] Routine
[2021-02-17] MEDS ORDERED: Iopamidol 755 Mg/ML 100 ML Bottle IV ONE (18:03)
[2021-02-17] MEDS ORDERED: Sodium Chloride 0.9% 10 ML Syringe FLUSH PRN (18:04)
--- NOTE | 2021-02-17 20:22 | CT ---
COMPUTERIZED TOMOGRAPHY ANGIOGRAPHY CHEST WITH CONTRAST INDICATION: Pleuritic pain at the left lateral hemithorax x3 days, increased D- dimer, question PE. TECHNIQUE: Spiral 1.25 mm axial sections were obtained through the chest with 85 mL Isovue 370 at 4.5 mL/second with axial, sagittal and coronal reconstructions 02/17/21 - no comparisons. Total exam DLP was 622.72 mGy/cm. FINDINGS: There is a large mass at the right thyroid lobe which measures 22 x 40.2 mm in the coronal projection image 34 of 88. It measures approximately 26 Hounsfield units, suggesting a cystic mass. Ultrasound of the thyroid is recommended for further evaluation of this finding. In the mediastinum, there is fairly extensive lymphadenopathy with significantly enlarged nodes present. Etiology could be on an inflammatory basis since there does appear to be infiltration in both upper lobes which is patchy and somewhat pleural based. COVID-19 pneumonia would be a consideration. The infiltrates are scattered throughout the lungs but are most prominent in the upper lung meza. No grossly consolidating pneumonia or effusion was seen. The upper abdomen included on the study showed evidence of previous surgery, punctate calcifications in the spleen compatible with previous histoplasmosis and what appears to be dilatation of the distal pre-atrial IVC. No evidence of pulmonary emboli could be identified. Accentuated dorsal kyphosis is noted at the upper thoracic spine. Anterior vertebral body volume loss is noted at multiple levels. Areas of marked decrease density are noted at multiple vertebral bodies. Etiology is indeterminate, question possibility of unusual spinal hemangiomas. Metastatic disease is felt to be somewhat less likely. There is also degenerative disc disease present at most levels in the upper middle through lower middle thoracic spine. Calcifications are noted in the abdominal aorta, mostly at the arch. The heart appears to be enlarged. Slight thickening of the pericardium is noted. Mild renal calcinosis is noted on the right with renal cortical scarring bilaterally. The gallbladder is absent with clips at the cystic duct compatible with cholecystectomy. IMPRESSION: 1. Patchy areas of frequently peripheral infiltration most prominent in the upper lung meza raising the question of COVID-19 - correlate clinically. 2. Extensive mediastinal lymphadenopathy, which may be on the basis of #1, but should be correlated clinically. 3. 4 cm low density possible cystic mass in the area of the right lobe of the thyroid gland. Ultrasound is recommended for further evaluation. 4. Dilated distal IVC at the atria. 5. ASHD with cardiomegaly and slight pericardial thickening. 6. Degenerative disc disease, hypertrophic degenerative changes, accentuated dorsal kyphosis with compression fractures that are probably old and areas of low density in the vertebral bodies raising the question of unusual spinal hemangiomas of the thoracic spine. 7. Renal calcinosis on the right with renal cortical scarring. 8. Post cholecystectomy. 9. Apparent bariatric surgery. 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 Report was called Dr. Lemon at 1934 hours 02/17/21. [facility]
[2021-02-17] MEDS ORDERED: Acetaminophen/HYDROcodone 325-5 MG Tab PO ONE (22:08)
[2021-02-17] MEDS ORDERED: predniSONE 20 MG Tab PO ONE (22:08)
[2021-02-17] MEDS ORDERED: Doxycycline 100 MG Tab PO ONE (22:08)
--- NOTE | 2021-02-17 22:11 | PCM.SN.2 ---
- Free Text/Narrative Note: 80-year-old female with sharp lateral chest pain who was seen by Dr. Hensley and I refer the reader to his emergency visit note. He turned the patient over to me with results of the CTA of her chest pending. Please see Dr. Hensley's note. Briefly, the patient developed this left lateral chest pain 3 days ago. It is sharp pain and she states it feels like she was hit with a baseball bat on the left lateral chest. No nausea or vomiting. No difficulty breathing. No cough. No fever. The patient has had no trauma to the area. She does not feel short of breath. Physical exam: The patient is awake and alert. She appears nontoxic. She does appear in some pain. She had been given Toradol earlier and now her pain is back according to her. Her pharynx is moist. Her neck is supple. There is no crepitus or subcutaneous emphysema. The lungs are clear bilaterally. Regular rate and rhythm without murmur. Abdomen is nontender. Extremities have good perfusion and no edema. Diagnostic data: The CTA of the chest showed no evidence of pulmonary emboli. There is a 4 cm right thyroid mass. There are bilateral scattered infiltrates. 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 There was also extensive mediastinal lymphadenopathy. This report was given to me verbally by Dr. Dean. Assessment: Left chest pleurisy. Bilateral pneumonias. Thyroid mass. Mediastinal adenopathy Plan: I will place patient on doxycycline 100 mg twice a day for 10 days. I have also given her a Medrol Dosepak that she continues to hopefully help decrease inflammation and decrease her pain. I will also give her a small prescription of hydrocodone 5/325 (she has taken this in the past without any problems). I have stressed to the patient that she needs to follow-up with her primary provider either this week or next as she will need recheck and further outpatient testing. She has remained hemodynamically and respiratory stable while in the emergency department. Time Documentation
== END 2021-02-17 22:35 | disposition still patient (30) ==
LOC: FB.ED 16:22
DX: R07.81 Pleurodynia (principal); R79.1 Abnormal coagulation profile; J45.909 Unspecified asthma, uncomplicated; K21.9 Gastro-esophageal reflux disease without esophagitis; Z77.22 Contact with and (suspected) exposure to environmental tobacco smoke (acute) (chronic); Z88.5 Allergy status to narcotic agent; Z88.0 Allergy status to penicillin; Z79.899 Other long term (current) drug therapy; Z20.822 Contact with and (suspected) exposure to COVID-19
CPT/HCPCS: 36415; 71275; 80053; 85025; 85379; 86140; 96372; 99284-25; A9270-GY; J1885; J7512; Q9967; U0002